=== PATIENT | female | born 1950 | race Caucasian/White ===

== ENCOUNTER → 2016-10-11 | Outpatient (CLI) | payer BC | LOC: COL.RAD 10:30 | DX: R74.8 Abnormal levels of other serum enzymes (principal); N28.1 Cyst of kidney, acquired ==

== ENCOUNTER → 2017-04-05 | Outpatient (CLI) | payer BC ==
[~2017-04-05] VITALS: Ht 162.6 cm; Wt 104.1 kg
[2017-04-05] VITALS (9 sets, daily range): BP systolic 140–172; BP diastolic 69–89; PULSE 76–90
[~2017-04-05] MED LIST: AFRIN 15 ML15 ML NS; AMITRIPTYLINE H50 M1 PO; ATIVAN 0.50.5 MG/TAB PO; CARAFATE 1GM1 G PO; FLEXERIL 1010 MG/TAB PO; MAXALT5 MG PO; MELAT3MGTAB PO; MUCINEX 60600 MG/TA1 PO; OMEGA-3 FISH1000 MG PO; PRAVACHOL 20MG20 MG PO; PREVACID 30MG30 M1 PO; PROZAC 20MG20 MG PO; WELLBUTRIN XL300 M1 PO
[2017-04-05 09:55] LABS: PROTHROMBIN TIME 11.1 SECONDS (9.7-12.8)
== END ==
LOC: COL.RAD 09:00
PROVIDERS: Internal Medicine Gastroenterology
DX: R94.5 Abnormal results of liver function studies (principal)

== ENCOUNTER → 2018-05-01 | Outpatient (CLI) | payer BC | LOC: MC.RAD 03-10 14:20 | DX: Z12.31 Encounter for screening mammogram for malignant neoplasm of breast (principal) ==

== ENCOUNTER → 2018-12-02 | Outpatient (CLI) | payer BC ==
[~2018-12-02] VITALS: Ht 161.3 cm; Wt 103.6 kg
[~2018-12-02] MED LIST changes: +PROTONIX 40MG T40 MG PO; +URSO FORTE500 MG PO
[2018-12-02 12:11] VITALS: BP 112/80; PULSE 80
== END ==
LOC: LIGHT 10-29 15:37
DX: F32.9 Major depressive disorder, single episode, unspecified (principal); M54.5 Low back pain; E03.9 Hypothyroidism, unspecified; E66.9 Obesity, unspecified; Z68.39 Body mass index [BMI] 39.0-39.9, adult; Z71.3 Dietary counseling and surveillance
CPT/HCPCS: G0463

== ENCOUNTER → 2019-01-06 | Outpatient (CLI) | payer BC ==
[~2019-01-06] VITALS: Ht 161.3 cm; Wt 102.7 kg
[2019-01-06 16:49] VITALS: BP 126/70; PULSE 88
== END ==
LOC: LIGHT 12-08 10:36
DX: F32.9 Major depressive disorder, single episode, unspecified (principal); M54.5 Low back pain; E03.9 Hypothyroidism, unspecified; E66.9 Obesity, unspecified; Z68.39 Body mass index [BMI] 39.0-39.9, adult; Z71.3 Dietary counseling and surveillance
CPT/HCPCS: G0463

== ENCOUNTER → 2019-01-13 | Outpatient (CLI) | payer BC | LOC: LIGHT 10:24 | DX: F32.9 Major depressive disorder, single episode, unspecified (principal); M54.9 Dorsalgia, unspecified; E03.9 Hypothyroidism, unspecified; E66.9 Obesity, unspecified; Z68.39 Body mass index [BMI] 39.0-39.9, adult; Z71.3 Dietary counseling and surveillance ==

== ENCOUNTER → 2019-03-10 | Outpatient (CLI) | payer BC ==
[~2019-03-10] VITALS: Ht 161.3 cm; Wt 103.2 kg
[2019-03-10 16:55] VITALS: BP 144/86; PULSE 92
== END ==
LOC: LIGHT 02-03 14:52
DX: F32.9 Major depressive disorder, single episode, unspecified (principal); M54.5 Low back pain; E03.9 Hypothyroidism, unspecified; E66.9 Obesity, unspecified; Z68.39 Body mass index [BMI] 39.0-39.9, adult; Z71.3 Dietary counseling and surveillance
CPT/HCPCS: G0463